=== PATIENT | female | born 1935 | race Caucasian/White ===

== ENCOUNTER 2021-02-02 07:21 | Emergency (ER) | payer MEDICARE ==
[2021-02-02 08:06] LABS: Absolute Neutrophil Ct (ANC) 3.94 (1.4-6.9); BASOPHIL % 0.5 % (0.0-0.4); Basophil (Absolute #) 0.03 (0-0.4); Eosinophil % 2.1 % (0.00-5.0); Eosinophil (Absolute #) 0.13 (0-0.5); Hematocrit 27.4 % (35-47); Hemoglobin 8.5 gm/dl (12.0-16.0); Lymphocyte (Absolute #) 1.53 (1.0-4.6); Lymphocytes % 24.7 % (24.0-44.0); Mean Cell Volume 88.7 fl (78-100); Mean Corpuscular Hemoglobin 27.5 pg (26-32); Mean Platelet Volume 9.9 fl (7.5-11.0); Monocyte (Absolute #) 0.56 (0.0-1.3); Neutrophil % 63.7 % (36.0-66.0); Platelet Count 129 K/mm3 (150-450); Red Blood Count 3.09 M/mm3 (4.1-5.4); White Blood Count 6.2 K/mm3 (4.0-10.5)
--- NOTE | 2021-02-02 08:10 | ERPHSYRPT ---
- History of Present Illness Historian: patient Exam Limitations: other (85 yo NH pt oriented only to place/time) Patient Subjective Stated Complaint: Pt was brought from [facility] with c/o of rectal bleeding per staff Triage Nursing Assessment: Pt brought to the ER via EMS, vitals wnl, pulse irregular, megan lower leg edema, confused, pt can't remember if she had a bowel movement this AM, pt confused as to why she is here, skin pale, cool and dry, wears depends, hyperactive bowel sounds, doesn't appear to be in any distress Physician History: 85 yo wf from [place] w rectal bleeding. Pt on Eliquis for Afib. She is only oriented to place/time. Pt denies CP/dyspnea/N/V/D. NH hx is very limited. She is a DNR. Timing/Duration: other (Unknown) Quality: other (No pain) Abdominal Pain Onset Location: other (No pain) Severity of Pain-Max: none Severity of Pain-Current: none Modifying Factors: Improves With: nothing Associated Symptoms: denies symptoms Previous symptoms: no prior history Allergies/Adverse Reactions: No Known Drug Allergies Allergy (Verified 02/02/21 07:41) Home Medications: Allopurinol 100 mg [Zyloprim 100 mg] 200 mg PO DAILY 02/02/21 [History] Bisacodyl 5 mg [Dulcolax 5 mg] 5 mg PO DAILY 02/02/21 [History] Bumetanide 1 mg [Bumex 1 mg] 1 mg PO DAILY 02/02/21 [History] Buspirone HCl 5 mg [Buspar 5 mg] 2.5 mg PO BID 02/02/21 [History] Carvedilol 6.25 mg [Coreg 6.25 MG] 6.25 mg PO BID 02/02/21 [History] Cyanocobalamin 500 Mcg [Vitamin B-12 500 MCG] 1,000 mcg PO DAILY 02/02/21 [History] Ferrous Sulfate 325 mg [Feosol 325 mg] 325 mg PO BID 02/02/21 [History] Potassium Chloride 10 Meq Tab* [Klor Con 10 MEQ] 40 meq PO BID 02/02/21 [History] Rivaroxaban [Xarelto] 15 mg PO DAILY 02/02/21 [History] metOLazone [Metolazone] 2.5 mg PO 2XW 02/02/21 [History] Travel Risk - International Travel Have you traveled outside of the country in past 3 weeks: No - Coronavirus Screening Are you exhibiting any of the following symptoms?: No Close contact with a COVID-19 positive Pt in past 14-21 Days: No - Vaccine Status Have you recieved a Covid-19 vaccination: Yes Silk Screener: Moderna - Vaccination Dates Date of 2cond Vaccination (if applicable): 08/31/2020 - Review of Systems Constitutional: No Symptoms Eyes: No Symptoms Ears, Nose, & Throat: No Symptoms Respiratory: No Symptoms Cardiac: No Symptoms Abdominal/Gastrointestinal: No Symptoms, Hematochezia Genitourinary Symptoms: No Symptoms Musculoskeletal: No Symptoms Skin: No Symptoms Neurological: No Symptoms Psychological: No Symptoms Endocrine: No Symptoms Hematologic/Lymphatic: No Symptoms Immunological/Allergic: No Symptoms - Past Medical History Pertinent Past Medical History: Yes Neurological History: Dementia Cardiac History: Arrhythmia, Congestive Heart Failure, Hypertension Musculoskeletal History: Osteoarthritis History: Renal Disease Psycho-Social History: Anxiety - Past Surgical History Past Surgical History: Yes (unknown) Gastrointestinal: Appendectomy - Social History Smoking Status: Never smoker Exposure to second hand smoke: No Drug Use: none Patient Lives Alone: No Significant Family History: no pertinent family hx - Female History Hx Now: No - Nursing Vital Signs Nursing Vital Signs: Initial Vital Signs Temperature 98.2 F 02/02/21 07:23 Pulse Rate 70 02/02/21 07:23 Blood Pressure 129/77 02/02/21 07:23 O2 Sat by Pulse Oximetry 94 L 02/02/21 07:23 Pain Scale Pain Intensity 0 - Physical Exam General Appearance: no apparent distress Eye Exam: PERRL/EOMI, eyes nml inspection Ears, Nose, Throat Exam: normal ENT inspection, TMs normal, pharynx normal, moist mucous membranes Neck Exam: normal inspection, non-tender, supple, full range of motion, No meningismus, No mass, No Brudzinski, No Kernig's, No carotid bruit Respiratory Exam: normal breath sounds, lungs clear, airway intact, No respiratory distress Cardiovascular Exam: other (IR-IR w3/6 BARBI) Gastrointestinal/Abdomen Exam: soft, normal bowel sounds, distention, No tenderness Rectal Exam: other (Gross hematochezia) Back Exam: normal inspection, normal range of motion, No CVA tenderness, No vertebral tenderness Extremity Exam: normal inspection, normal range of motion, pelvis stable Neurologic Exam: alert, cooperative, online merchandiser II-XII nml as tested, normal mood/affect, sensation nml, confusion (Disoriented to time), No motor deficits, No sensory deficit, No agitation, No uncooperative Skin Exam: normal color, warm, dry, No rash Lymphatic Exam: No adenopathy SpO2 Interpretation: normal SpO2: 94 O2 Delivery: Room Air - Course Nursing assessment & vital signs reviewed: Yes Ordered Tests: Active Orders 24 hr Category Date Time Status CBC W DIFF Stat Lab 02/02/21 07:52 Completed CMP Stat Lab 02/02/21 07:52 Completed PROTIME WITH INR Stat Lab 02/02/21 07:52 Completed TROPONIN Q3H Lab 02/02/21 07:45 Completed Medication Summary Discontinued Medications Generic Name Dose Route Start Last Admin Trade Name Janelle PRN Reason Stop Dose Admin Phytonadione 10 mg 02/02/21 09:05 02/02/21 09:07 Vitamin K 10 Mg/Ml SQ 02/02/21 09:06 10 mg STAT ONE Administration Phytonadione Confirm 02/02/21 09:06 Vitamin K 10 Mg/Ml Administered 02/02/21 09:07 Dose 10 mg .ROUTE .STK-MED ONE Lab/Rad Data: Laboratory Result Diagrams 02/02/21 07:52 02/02/21 07:52 Laboratory Results 02/02/21 02/02/21 02/02/21 Range/Units 07:52 07:52 07:52 WBC 6.2 (4.0-10.5) K/mm3 RBC 3.09 L (4.1-5.4) M/mm3 Hgb 8.5 L (12.0-16.0) gm/dl Hct 27.4 L (35-47) % MCV 88.7 (78-100) fl MCH 27.5 (26-32) pg MCHC 31.0 L (32-36) g/dl RDW 15.0 H (11.5-14.0) % Plt Count 129 L (150-450) K/mm3 MPV 9.9 (7.5-11.0) fl Gran % 63.7 (36.0-66.0) % Eos # (Auto) 0.13 (0-0.5) Absolute Lymphs (auto) 1.53 (1.0-4.6) Absolute Monos (auto) 0.56 (0.0-1.3) Lymphocytes % 24.7 (24.0-44.0) % Monocytes % 9.0 (0.0-12.0) % Eosinophils % 2.1 (0.00-5.0) % Basophils % 0.5 (0.0-0.4) % Absolute Granulocytes 3.94 (1.4-6.9) Basophils # 0.03 (0-0.4) PT 32.6 H (9.4-12.5) SECONDS INR 2.76 (0.8-3.0) Sodium 141 (137-145) mmol/L Potassium 3.4 L (3.5-5.1) mmol/L Chloride 103 (98-107) mmol/L Carbon Dioxide 25 (22-30) mmol/L Anion Gap 16.8 H (5-15) MEQ/L BUN 49 H (7-17) mg/dL Creatinine 0.94 (0.52-1.04) mg/dL Estimated GFR > 60.0 ML/MIN Glucose 123 H (74-106) mg/dL Calcium 9.1 (8.4-10.2) mg/dL Total Bilirubin 0.50 (0.2-1.3) mg/dL AST 29 (14-36) U/L ALT 19 (0-35) U/L Alkaline Phosphatase 83 (38-126) U/L Troponin I (0.000-0.034) ng/mL Serum Total Protein 6.1 L (6.3-8.2) g/dL Albumin 3.7 (3.5-5.0) g/dL 02/02/21 Range/Units 07:45 WBC (4.0-10.5) K/mm3 RBC (4.1-5.4) M/mm3 Hgb (12.0-16.0) gm/dl Hct (35-47) % MCV (78-100) fl MCH (26-32) pg MCHC (32-36) g/dl RDW (11.5-14.0) % Plt Count (150-450) K/mm3 MPV (7.5-11.0) fl Gran % (36.0-66.0) % Eos # (Auto) (0-0.5) Absolute Lymphs (auto) (1.0-4.6) Absolute Monos (auto) (0.0-1.3) Lymphocytes % (24.0-44.0) % Monocytes % (0.0-12.0) % Eosinophils % (0.00-5.0) % Basophils % (0.0-0.4) % Absolute Granulocytes (1.4-6.9) Basophils # (0-0.4) PT (9.4-12.5) SECONDS INR (0.8-3.0) Sodium (137-145) mmol/L Potassium (3.5-5.1) mmol/L Chloride (98-107) mmol/L Carbon Dioxide (22-30) mmol/L Anion Gap (5-15) MEQ/L BUN (7-17) mg/dL Creatinine (0.52-1.04) mg/dL Estimated GFR ML/MIN Glucose (74-106) mg/dL Calcium (8.4-10.2) mg/dL Total Bilirubin (0.2-1.3) mg/dL AST (14-36) U/L ALT (0-35) U/L Alkaline Phosphatase (38-126) U/L Troponin I 0.021 (0.000-0.034) ng/mL Serum Total Protein (6.3-8.2) g/dL Albumin (3.5-5.0) g/dL - Progress Progress Note: 02/02/21 08:[address] Partida, wants to transfer to [facility] 02/02/21 09:[address] Palacios at [facility] 02/02/21 09:12 10units sq Vit 02/02/21 11:41 Pt stable upon transfer to [facility] Discussed with : Arabella Counseled pt/family regarding: lab results - Departure Departure Disposition: Transfer Clinical Impression: GI bleed Condition: Stable Critical Care Time: No Referrals: LIZET RAMIREZ [Primary Care Provider] - Instructions: Gastrointestinal Bleeding (DC)
[2021-02-02 08:13] LABS: INR 2.76 (0.8-3.0); PROTIME 32.6 SECONDS (9.4-12.5)
[2021-02-02 08:16] LABS: ALBUMIN 3.7 g/dL (3.5-5.0); ALKALINE PHOSPHATASE 83 U/L (38-126); ANION GAP 16.8 MEQ/L (5-15); BLOOD UREA NITROGEN 49 mg/dL (7-17); CHLORIDE 103 mmol/L (98-107); Calcium 9.1 mg/dL (8.4-10.2); Carbon Dioxide 25 mmol/L (22-30); Creatinine 1 0.94 mg/dL (0.52-1.04); EST GLOMERULAR FILTRATION RATE > 60.0 ML/MIN; Glucose 123 mg/dL (74-106); Potassium 3.4 mmol/L (3.5-5.1); SGOT/AST 29 U/L (14-36); SGPT/ALT 19 U/L (0-35); SODIUM 141 mmol/L (137-145); Total Protein 6.1 g/dL (6.3-8.2)
[2021-02-02 08:27] VITALS: PULSE 64
[2021-02-02 09:03] VITALS: BP 116/70
[2021-02-02] MEDS ORDERED: Vitamin K 10 MG/ML SQ ONE (09:05)
[2021-02-02 09:06] VITALS: O2SAT 94
[2021-02-02] MEDS ORDERED: Vitamin K 10 MG/ML ONE (09:06)
== END 2021-02-02 09:36 | disposition short-term general hospital (02) ==
LOC: ED 07:21
DX: Z79.899 Other long term (current) drug therapy (principal); I10 Essential (primary) hypertension; I50.9 Heart failure, unspecified; N28.9 Disorder of kidney and ureter, unspecified
CPT/HCPCS: 36000; 36415; 80053; 84484; 85025; 85610; 96372; 99284; J3430

== ENCOUNTER 2021-04-25 18:46 | Observation (INO) | payer MEDICARE ==
--- NOTE | 2021-04-25 18:53 | ERPHSYRPT ---
- History of Present Illness Time Seen by Provider: 04/25/21 18:53 Source: patient, EMS, custodial records, old records Exam Limitations: clinical condition Physician History: This is an 85-year-old white female patient who is a resident of [facility] and presents with abdominal distention with increased swelling in her lower extremities. Patient has significant Alzheimer's dementia, anxiety, hypertension, congestive heart failure and renal disease. She sees Dr. Gusman assistant hairstylist for her renal disease. She also has a history of atrial fibrillation and gout. Patient denies any pain complaints although she does cry out when we move her or press anywhere on her body including her abdomen. Timing/Duration: today Severity: moderate Modifying Factors: Improves With: nothing Associated Symptoms: denies symptoms Allergies/Adverse Reactions: No Known Drug Allergies Allergy (Verified 02/02/21 07:41) Home Medications: Allopurinol 100 mg [Zyloprim 100 mg] 200 mg PO DAILY 02/02/21 [History] Bisacodyl 5 mg [Dulcolax 5 mg] 5 mg PO DAILY PRN PRN 02/02/21 [History] Bumetanide 1 mg [Bumex 1 mg] 1 mg PO DAILY 02/02/21 [History] Buspirone HCl 5 mg [Buspar 5 mg] 5 mg PO DAILY 02/02/21 [History] Carvedilol 6.25 mg [Coreg 6.25 MG] 6.25 mg PO BID 02/02/21 [History] Cyanocobalamin 500 Mcg [Vitamin B-12 500 MCG] 1,000 mcg PO DAILY 02/02/21 [History] Ferrous Sulfate 325 mg [Feosol 325 mg] 325 mg PO BID 02/02/21 [History] Potassium Chloride 10 Meq Tab* [Klor Con 10 MEQ] 40 meq PO BID 02/02/21 [History] Acetaminophen 325 mg [Tylenol 325 mg] 325 mg PO Q4HPRN PRN 04/25/21 [History] Aspirin 81 mg PO DAILY 04/25/21 [History] Docusate Sodium 100 mg [Colace 100 MG] 100 mg PO DAILY 04/25/21 [History] Famotidine [Pepcid] 40 mg PO DAILY 04/25/21 [History] Nystatin Powder 15 gm [Nystop Powder 15 gm] 1 gm TOP BID 04/26/21 [History] Travel Risk - International Travel Have you traveled outside of the country in past 3 weeks: No - Coronavirus Screening Are you exhibiting any of the following symptoms?: No Close contact with a COVID-19 positive Pt in past 14-21 Days: No - Vaccine Status Have you recieved a Covid-19 vaccination: Yes Relay Shop Supervisor: Moderna - Vaccination Dates Date of 2cond Vaccination (if applicable): 08/31/2020 - Review of Systems Constitutional: No Symptoms Eyes: No Symptoms Ears, Nose, & Throat: No Symptoms Respiratory: No Symptoms Cardiac: No Symptoms Abdominal/Gastrointestinal: Abdominal Pain, No Nausea Genitourinary Symptoms: No Symptoms Musculoskeletal: Other (Bilateral lower extremity swelling) Skin: No Symptoms Neurological: Other (Significant Alzheimer's dementia) Psychological: Anxiety Endocrine: No Symptoms Hematologic/Lymphatic: No Symptoms Immunological/Allergic: No Symptoms All Other Systems: Reviewed and Negative - Past Medical History Pertinent Past Medical History: Yes Neurological History: Dementia Cardiac History: Arrhythmia, Congestive Heart Failure, Hypertension Musculoskeletal History: Osteoarthritis History: Renal Disease Psycho-Social History: Anxiety - Past Surgical History Past Surgical History: Yes (unknown) Gastrointestinal: Appendectomy - Social History Smoking Status: Never smoker Exposure to second hand smoke: No Drug Use: none Patient Lives Alone: No Significant Family History: no pertinent family hx - Nursing Vital Signs Nursing Vital Signs: Initial Vital Signs Temperature 98.6 F 04/25/21 19:02 Pulse Rate 121 H 04/25/21 19:02 Respiratory Rate 28 H 04/25/21 19:02 Blood Pressure 120/108 04/25/21 19:02 O2 Sat by Pulse Oximetry 86 L 04/25/21 19:02 Pain Scale Pain Intensity 0 - Physical Exam General Appearance: no apparent distress, alert, anxiety, obese Eye Exam: PERRL/EOMI, eyes nml inspection Ears, Nose, Throat Exam: normal ENT inspection, moist mucous membranes Neck Exam: normal inspection, non-tender, supple, full range of motion Respiratory Exam: normal breath sounds, airway intact, No chest tenderness, No lungs clear, No respiratory distress Cardiovascular Exam: tachycardia Gastrointestinal/Abdomen Exam: soft, normal bowel sounds, No tenderness Pelvic Exam: not done Rectal Exam: not done Back Exam: normal inspection, normal range of motion, No CVA tenderness Extremity Exam: normal range of motion, pelvis stable, other (Bilateral edema from feet to above the knees) Neurologic Exam: alert, shirt ironer II-XII nml as tested, disoriented, confusion (Secondary to Alzheimer's dementia) Skin Exam: normal color, warm, dry Lymphatic Exam: No adenopathy SpO2 Interpretation: hypoxic O2 Delivery: Room Air - Course Nursing assessment & vital signs reviewed: Yes Ordered Tests: Medication Summary Discontinued Medications Generic Name Dose Route Start Last Admin Trade Name Freq PRN Reason Stop Dose Admin Acetaminophen 650 mg 04/25/21 23:46 Acetaminophen 325 Mg Tablet PO 05/25/21 23:45 Q4H PRN PRN PAIN, FEVER, HEADACHE Acetaminophen 325 mg 04/26/21 08:38 Acetaminophen 325 Mg Tablet PO 05/26/21 08:37 Q4HPRN PRN PAIN Allopurinol 200 mg 04/26/21 10:00 04/26/21 09:12 Allopurinol 100 Mg Tablet PO 05/26/21 09:59 200 mg DAILY RENE Administration Aspirin 81 mg 04/26/21 10:00 04/26/21 09:22 Aspirin 81 Mg Tablet.Ec PO 05/26/21 09:59 81 mg DAILY RENE Administration Bisacodyl 5 mg 04/26/21 08:38 Bisacodyl 5 Mg Tablet.Ec PO 05/26/21 08:37 DAILY PRN PRN CONSTIPATION Bumetanide 1 mg 04/26/21 10:00 04/25/21 22:04 Bumetanide 0.25 Mg/Ml 4ml Vial IV 05/26/21 09:59 1 mg DAILY RENE Administration Bumetanide Confirm 04/25/21 22:02 Bumetanide 0.25 Mg/Ml 4ml Vial Administered 04/25/21 22:03 Dose 1 mg .ROUTE .STK-MED ONE Bumetanide 1 mg 04/26/21 10:00 04/26/21 09:12 Bumetanide 1 Mg Tablet PO 05/26/21 09:59 1 mg DAILY RENE Administration Buspirone HCl 5 mg 04/26/21 10:00 04/26/21 09:12 Buspirone Hcl 5 Mg Tablet PO 05/26/21 09:59 5 mg DAILY RENE Administration Carvedilol 6.25 mg 04/26/21 10:00 04/26/21 09:13 Carvedilol 6.25 Mg Tablet PO 05/26/21 09:59 6.25 mg BID RENE Administration Cyanocobalamin 1,000 mcg 04/26/21 10:00 04/26/21 09:12 Cyanocobalamin 500 Mcg Tablet PO 05/26/21 09:59 1,000 mcg DAILY RENE Administration Docusate Sodium 100 mg 04/26/21 10:00 04/26/21 09:12 Docusate Sodium 100 Mg Capsule PO 05/26/21 09:59 100 mg DAILY RENE Administration Famotidine 40 mg 04/26/21 10:00 04/26/21 09:21 Famotidine 20 Mg Tablet PO 05/26/21 09:59 40 mg DAILY RENE Administration Ferrous Sulfate 325 mg 04/26/21 10:00 04/26/21 09:21 Ferrous Sulfate 325 Mg Tablet PO 05/26/21 09:59 325 mg BID RENE Administration Furosemide 20 mg 04/26/21 08:27 04/26/21 08:38 Furosemide 20 Mg/Vial IV 04/26/21 08:28 20 mg ONCE ONE Administration Ceftriaxone Sodium/Dextrose 1 g in 50 mls @ 100 mls/hr 04/25/21 21:17 04/25/21 22:15 Rocephin 1 Gm-D5w 50 Ml Bag IV 04/25/21 21:46 Infused STAT STA Infusion Ceftriaxone Sodium/Dextrose Confirm 04/25/21 21:21 Rocephin 1 Gm-D5w 50 Ml Bag Administered 04/25/21 21:22 Dose 1 g in 50 mls @ ud IV .STK-MED ONE Sodium Chloride 1,000 mls @ 50 mls/hr 04/25/21 23:46 04/26/21 01:27 Sodium Chloride 0.9% 1000 Ml IV 05/25/21 23:45 50 mls/hr .Q20H RENE Administration Ceftriaxone Sodium/Dextrose 1 g in 50 mls @ 100 mls/hr 04/26/21 22:00 Rocephin 1 Gm-D5w 50 Ml Bag IV 04/29/21 21:59 QPM RENE Sodium Chloride Confirm 04/26/21 01:22 Sodium Chloride 0.9% 1000 Ml Administered 04/26/21 01:23 Dose 1,000 mls @ ud .ROUTE .STK-MED ONE Lorazepam 0.5 mg 04/25/21 21:16 04/25/21 21:33 Lorazepam 2 Mg/1 Ml 2 Mg Vial IV 04/25/21 21:17 0.5 mg STAT ONE Administration Lorazepam Confirm 04/25/21 21:20 Lorazepam 2 Mg/1 Ml 2 Mg Vial Administered 04/25/21 21:21 Dose 2 mg .ROUTE .STK-MED ONE Lorazepam 0.5 mg 04/25/21 21:50 04/26/21 03:28 Lorazepam 2 Mg/1 Ml 2 Mg Vial IV 05/25/21 21:49 0.5 mg Q4H PRN PRN Administration ANXIETY Nystatin 1 gm 04/26/21 10:00 04/26/21 09:23 Nystatin 15 Gm Powder TOP 05/26/21 09:59 1 gm BID RENE Administration Potassium Chloride 40 meq 04/26/21 10:00 04/26/21 09:22 Potassium Chloride 10 Meq Tablet PO 05/26/21 09:59 40 meq BID RENE Administration Lab/Rad Data: Laboratory Result Diagrams 04/25/21 19:38 04/25/21 19:38 Laboratory Results 04/25/21 04/25/21 04/25/21 Range/Units 21:42 21:40 19:38 WBC (4.0-10.5) K/mm3 RBC (4.1-5.4) M/mm3 Hgb (12.0-16.0) gm/dl Hct (35-47) % MCV (78-100) fl MCH (26-32) pg MCHC (32-36) g/dl RDW (11.5-14.0) % Plt Count (150-450) K/mm3 MPV (7.5-11.0) fl Gran % (36.0-66.0) % Eos # (Auto) (0-0.5) Absolute Lymphs (auto) (1.0-4.6) Absolute Monos (auto) (0.0-1.3) Lymphocytes % (24.0-44.0) % Monocytes % (0.0-12.0) % Eosinophils % (0.00-5.0) % Basophils % (0.0-0.4) % Absolute Granulocytes (1.4-6.9) Basophils # (0-0.4) Sodium 141 (137-145) mmol/L Potassium 5.0 (3.5-5.1) mmol/L Chloride 107 (98-107) mmol/L Carbon Dioxide 19 L (22-30) mmol/L Anion Gap 19.8 H (5-15) MEQ/L BUN 34 H (7-17) mg/dL Creatinine 1.13 H (0.52-1.04) mg/dL Estimated GFR 48.5 ML/MIN Glucose 153 H (74-106) mg/dL Lactic Acid 0.7 (0.4-2.0) Calcium 9.6 (8.4-10.2) mg/dL Total Bilirubin 0.80 (0.2-1.3) mg/dL AST 27 (14-36) U/L ALT 16 (0-35) U/L Alkaline Phosphatase 107 (38-126) U/L Serum Total Protein 6.7 (6.3-8.2) g/dL Albumin 3.9 (3.5-5.0) g/dL Amylase 70 (30-110) U/L Lipase 186 (23-300) U/L Urine Color (YELLOW) Urine Appearance (CLEAR) Urine pH (5-6) Ur Specific [place] (1.005-1.025) Urine Protein (Negative) Urine Ketones (NEGATIVE) Urine Blood (0-5) [place] Urine Nitrite (NEGATIVE) Urine Bilirubin (NEGATIVE) Urine Urobilinogen (0-1) mg/dL Ur Leukocyte Esterase (NEGATIVE) Urine WBC (Auto) (0-5) /HPF Urine RBC (Auto) (0-2) /HPF U Hyaline Cast (Auto) (0-2) /LPF U Epithel Cells (Auto) (FEW) /HPF Urine Bacteria (Auto) (NEGATIVE) /HPF Urine Culture Reflexed (NO) Urine Glucose (NEGATIVE) mg/dL SARS-CoV-2 (PCR) NEGATIVE (NEGATIVE) 04/25/21 04/25/21 04/25/21 Range/Units 19:38 19:24 19:19 WBC 7.0 (4.0-10.5) K/mm3 RBC 3.83 L (4.1-5.4) M/mm3 Hgb 10.3 L (12.0-16.0) gm/dl Hct 33.4 L (35-47) % MCV 87.2 (78-100) fl MCH 26.9 (26-32) pg MCHC 30.8 L (32-36) g/dl RDW 17.4 H (11.5-14.0) % Plt Count 157 (150-450) K/mm3 MPV 10.9 (7.5-11.0) fl Gran % 58.4 (36.0-66.0) % Eos # (Auto) 0.09 (0-0.5) Absolute Lymphs (auto) 1.91 (1.0-4.6) Absolute Monos (auto) 0.91 (0.0-1.3) Lymphocytes % 27.2 (24.0-44.0) % Monocytes % 13.0 H (0.0-12.0) % Eosinophils % 1.3 (0.00-5.0) % Basophils % 0.1 (0.0-0.4) % Absolute Granulocytes 4.10 (1.4-6.9) Basophils # 0.01 (0-0.4) Sodium (137-145) mmol/L Potassium (3.5-5.1) mmol/L Chloride (98-107) mmol/L Carbon Dioxide (22-30) mmol/L Anion Gap (5-15) MEQ/L BUN (7-17) mg/dL Creatinine (0.52-1.04) mg/dL Estimated GFR ML/MIN Glucose (74-106) mg/dL Lactic Acid 2.2 H (0.4-2.0) Calcium (8.4-10.2) mg/dL Total Bilirubin (0.2-1.3) mg/dL AST (14-36) U/L ALT (0-35) U/L Alkaline Phosphatase (38-126) U/L Serum Total Protein (6.3-8.2) g/dL Albumin (3.5-5.0) g/dL Amylase (30-110) U/L Lipase (23-300) U/L Urine Color YELLOW (YELLOW) Urine Appearance CLOUDY (CLEAR) Urine pH 5.0 (5-6) Ur Specific [place] 1.010 (1.005-1.025) Urine Protein NEGATIVE (Negative) Urine Ketones NEGATIVE (NEGATIVE) Urine Blood MODERATE (0-5) [place] Urine Nitrite POSITIVE (NEGATIVE) Urine Bilirubin NEGATIVE (NEGATIVE) Urine Urobilinogen NEGATIVE (0-1) mg/dL Ur Leukocyte Esterase LARGE (NEGATIVE) Urine WBC (Auto) >100 (0-5) /HPF Urine RBC (Auto) 16-25 (0-2) /HPF U Hyaline Cast (Auto) 11-25 (0-2) /LPF U Epithel Cells (Auto) RARE (FEW) /HPF Urine Bacteria (Auto) FEW (NEGATIVE) /HPF Urine Culture Reflexed ORDERED SEPARATELY (NO) Urine Glucose NEGATIVE (NEGATIVE) mg/dL SARS-CoV-2 (PCR) (NEGATIVE) - Progress Progress: improved, pain not gone completely Progress Note: 04/25/21 21:28 CAT scan of the abdomen and pelvis shows massive cardiomegaly with small right pleural effusion. There is anasarca present. There is a cirrhotic liver with moderate abdominal and peritoneal ascites present. 04/25/21 21:28 Medical decision making: This patient has intra-abdominal ascites that is causing abdominal distention. The patient also has a urinary tract infection. I spoke with Dr. Post and reviewed the patient's labs and the CAT scan findings. The plan is to place her in observation and provide her with diuretics as well as intravenous antibiotics to treat her urinary tract infection. We will also consult Dr. Adler, our interventional radiologist, to perform a radiographic paracentesis. Discussed with : Katy Counseled pt/family regarding: lab results, diagnosis, rad results - Departure Departure Disposition: Observation Clinical Impression: Dementia, Urinary tract infection, Abdominal ascites Condition: Fair Critical Care Time: No
[2021-04-25 19:52] LABS: Appearance CLOUDY (CLEAR); Bacteria FEW /HPF (NEGATIVE); Bilirubin NEGATIVE (NEGATIVE); Blood MODERATE Ery/ul (0-5); Epithelial Cells RARE /HPF (FEW); Glucose NEGATIVE (NEGATIVE); Ketones NEGATIVE (NEGATIVE); Leukocyte Esterase LARGE (NEGATIVE); Nitrite POSITIVE (NEGATIVE); Protein,Urine Dip NEGATIVE (Negative); Urobilinogen NEGATIVE mg/dL (0-1); WBC >100 /HPF (0-5)
[2021-04-25 20:02] LABS: BASOPHIL % 0.1 % (0.0-0.4); Basophil (Absolute #) 0.01 (0-0.4); Eosinophil % 1.3 % (0.00-5.0); Eosinophil (Absolute #) 0.09 (0-0.5); Hematocrit 33.4 % (35-47); Hemoglobin 10.3 gm/dl (12.0-16.0); Lymphocyte (Absolute #) 1.91 (1.0-4.6); Lymphocytes % 27.2 % (24.0-44.0); Mean Cell Volume 87.2 fl (78-100); Mean Corpuscular Hemoglobin 26.9 pg (26-32); Mean Corpuscular Hgb Concent. 30.8 g/dl (32-36); Mean Platelet Volume 10.9 fl (7.5-11.0); Monocyte (Absolute #) 0.91 (0.0-1.3); Neutrophil % 58.4 % (36.0-66.0); Platelet Count 157 K/mm3 (150-450); Red Blood Count 3.83 M/mm3 (4.1-5.4); Red Cell Distribution Width 17.4 % (11.5-14.0)
[2021-04-25 20:21] LABS: ALBUMIN 3.9 g/dL (3.5-5.0); ANION GAP 19.8 MEQ/L (5-15); BILIRUBIN,TOTAL 0.8 mg/dL (0.2-1.3); Calcium 9.6 mg/dL (8.4-10.2); Creatinine 1 1.13 mg/dL (0.52-1.04); EST GLOMERULAR FILTRATION RATE 48.5 ML/MIN; Total Protein 6.7 g/dL (6.3-8.2)
[2021-04-25] MEDS ORDERED: Ativan 2 MG/1 ML VIAL IV ONE (21:16)
[2021-04-25] MEDS ORDERED: ROCEPHIN 1 Gm-D5w 50 ml Bag** 1 G/50 ML IVPB IV STA (21:17)
[2021-04-25] MEDS ORDERED: Ativan 2 MG/1 ML VIAL ONE (21:20)
[2021-04-25] MEDS ORDERED: ROCEPHIN 1 Gm-D5w 50 ml Bag** 1 G/50 ML IVPB IV ONE (21:21)
[2021-04-25] MEDS ORDERED: Ativan 2 MG/1 ML VIAL IV PRN (21:50)
[2021-04-25] MEDS ORDERED: BUMEX 1 MG ONE (22:02)
[2021-04-25] MEDS ORDERED: TYLENOL 325 MG PO PRN (23:46)
[2021-04-25] MEDS ORDERED: Sodium Chloride 0.9% 1000 ML 1,000 ML IV SCH (23:46)
[2021-04-26] MEDS ORDERED: Sodium Chloride 0.9% 1000 ML 1,000 ML ONE (01:22)
[2021-04-26 04:07] VITALS: O2SAT 93
[2021-04-26 06:02] LABS: INR 1.38 (0.8-3.0); PROTIME 16.3 SECONDS (9.4-12.5)
[2021-04-26] MEDS ORDERED: Lasix 20 MG/2 ML IV ONE (08:27)
[2021-04-26] MEDS ORDERED: DULCOLAX 5 MG PO PRN (08:38)
[2021-04-26] MEDS ORDERED: TYLENOL 325 MG PO PRN (08:38)
--- NOTE | 2021-04-26 08:42 | XRAY ---
Indication: Abdomen distention. Multiple contiguous axial images obtained through the abdomen and pelvis without contrast. Comparison: None Several images slightly degraded by respiration artifact. Lung bases demonstrates massive cardiomegaly, tiny right effusion, and minimal bibasilar subsegmental atelectasis/scarring. Noncontrasted stomach and bowel loops appear nonobstructed. Mild sigmoid diverticulosis. Cirrhotic appearing liver with moderate abdominal and pelvic ascites. No free air. Alves balloon catheter empties the urinary bladder. Previous cholecystectomy and hysterectomy. Remaining pancreas, spleen, adrenal glands, kidneys, and ureters are unremarkable for noncontrast exam. Mild scattered aortoiliac calcifications without AAA. Osseous structures demineralized with minimal/mild degenerative spondylosis and moderate levorotoscoliosis centered at the thoracolumbar junction. There is moderate diffuse anasarca. Impression: 1. Massive cardiomegaly with tiny right effusion and anasarca. Rule out cardiac decompensation/CHF. 2. Cirrhotic liver with abdominal/pelvic ascites. 3. Incidental sigmoid diverticulosis and chronic bony findings.
--- NOTE | 2021-04-26 08:43 | XRAY ---
Indication: Cough. Comparison: None Portable chest inflated and clear with massive cardiomegaly. Bony thorax intact with osteopenia and mild degenerative changes.
[2021-04-26] MEDS ORDERED: NYSTOP POWDER 15 GM TOP SCH (10:00)
[2021-04-26] MEDS ORDERED: BUMEX 1 MG PO SCH (10:00)
[2021-04-26] MEDS ORDERED: ZYLOPRIM 100 MG PO SCH (10:00)
[2021-04-26] MEDS ORDERED: Coreg 6.25 MG PO SCH (10:00)
[2021-04-26] MEDS ORDERED: Colace 100 MG PO SCH (10:00)
[2021-04-26] MEDS ORDERED: Pepcid 20 MG PO SCH (10:00)
[2021-04-26] MEDS ORDERED: NON-FORMULARY ITEM (Famotidine [Pepcid] 40 MG) PO SCH (10:00)
[2021-04-26] MEDS ORDERED: NON-FORMULARY ITEM (Aspirin [Aspirin] 81 MG) PO SCH (10:00)
[2021-04-26] MEDS ORDERED: Klor Con 10 MEQ PO SCH (10:00)
[2021-04-26] MEDS ORDERED: BUMEX 1 MG IV SCH (10:00)
[2021-04-26] MEDS ORDERED: BUSPAR 5 MG PO SCH (10:00)
[2021-04-26] MEDS ORDERED: ECOTRIN 81 MG PO SCH (10:00)
[2021-04-26] MEDS ORDERED: FEOSOL 325 MG PO SCH (10:00)
[2021-04-26] MEDS ORDERED: Vitamin B-12 500 MCG PO SCH (10:00)
[2021-04-26 12:00] VITALS: BP 119/61; PULSE 90
--- NOTE | 2021-04-26 14:13 | XRAY ---
Indication: Ascites. Informed consent obtained. Bedside paracentesis performed. Initial abdominal ultrasound performed for localization. Largest pocket is right mid lateral abdomen. The abdominal wall was prepped and draped in sterile fashion. 1% lidocaine plain was used for local anesthesia. Tiny skin incision made. 5 [place] paracentesis needle/catheter was then percutaneously inserted. Once fluid was aspirating, the outer catheter was then advanced with the inner needle removed. Catheter was connected to a Vacutainer. Approximately 1.2 L of dark colored transudative fluid aspirated and was disposed of properly. 30 cc sent to laboratory for analysis. Repeat sonogram demonstrates marked improvement with small residual. Catheter removed. Hemostasis achieved using digital pressure over the puncture site. Band-Aid applied over the puncture site. Impression: Technically successful ultrasound guided abdominal paracentesis for both diagnostic and therapeutic purpose. No immediate complications or blood loss.
[2021-04-26] MEDS ORDERED: ROCEPHIN 1 Gm-D5w 50 ml Bag** 1 G/50 ML IVPB IV SCH (22:00)
--- NOTE | 2021-04-30 08:36 | PCM.SSS ---
History of Present Illness - Chief Complaint Chief Complaint: Intra-abdominal ascites, UTI Date: 04/26/21 History of Present Illness: is a 85 year old female. Presented to ER with intra-abdominal ascites and lower extremity edema. Pt. was admitted for U/S guided peritoneal drainage of the ascites, and initiation of treatment for a uti. Pt. tolerated procedure well and was subsequently discharged to long-term on oral antibiotics. - Review of Systems Constitutional: No Fever, No Chills Eyes: No Symptoms Ears, Nose, & Throat: No Symptoms Respiratory: No Cough, No Short Of Breath Cardiac: Edema, No Chest Pain, No Syncope Abdominal/Gastrointestinal: Constipation, Other (ascites), No Abdominal Pain, No Nausea, No Vomiting, No Diarrhea Genitourinary Symptoms: No Dysuria Musculoskeletal: No Back Pain, No Neck Pain Skin: No Rash Neurological: No Dizziness, No Focal Weakness, No Sensory Changes Psychological: No Symptoms Endocrine: No Symptoms Hematologic/Lymphatic: No Symptoms Immunological/Allergic: No Symptoms Medications & Allergies Home Medications: Home Medication List Allopurinol 100 mg [Zyloprim 100 mg] 200 mg PO DAILY 02/02/21 [History Confirmed 04/25/21] Bisacodyl 5 mg [Dulcolax 5 mg] 5 mg PO DAILY PRN PRN 02/02/21 [History Confirmed 04/26/21] Bumetanide 1 mg [Bumex 1 mg] 1 mg PO DAILY 02/02/21 [History Confirmed 04/25/21] Buspirone HCl 5 mg [Buspar 5 mg] 5 mg PO DAILY 02/02/21 [History Confirmed 04/26/21] Carvedilol 6.25 mg [Coreg 6.25 MG] 6.25 mg PO BID 02/02/21 [History Confirmed 04/25/21] Cyanocobalamin 500 Mcg [Vitamin B-12 500 MCG] 1,000 mcg PO DAILY 02/02/21 [History Confirmed 04/25/21] Ferrous Sulfate 325 mg [Feosol 325 mg] 325 mg PO BID 02/02/21 [History Confirmed 04/25/21] Potassium Chloride 10 Meq Tab* [Klor Con 10 MEQ] 40 meq PO BID 02/02/21 [History Confirmed 04/25/21] Acetaminophen 325 mg [Tylenol 325 mg] 325 mg PO Q4HPRN PRN 04/25/21 [Histo ry Confirmed 04/26/21] Aspirin 81 mg PO DAILY 04/25/21 [History Confirmed 04/25/21] Docusate Sodium 100 mg [Colace 100 MG] 100 mg PO DAILY 04/25/21 [History Confirmed 04/25/21] Famotidine [Pepcid] 40 mg PO DAILY 04/25/21 [History Confirmed 04/25/21] Nystatin Powder 15 gm [Nystop Powder 15 gm] 1 gm TOP BID 04/26/21 [History Confirmed 04/26/21] clindamycin HCL [Cleocin HCl] 300 mg PO BID 10 Days #20 tab 04/26/21 [Rx] Allergies/Adverse Reactions: Allergies Allergy/AdvReac Type Severity Reaction Status Date / Time No Known Drug Allergies Allergy Verified 02/02/21 07:41 - Past Medical History Past Medical History: Yes Neurological History: Dementia ENT History: No Pertinent History Cardiac History: Arrhythmia, Congestive Heart Failure, Hypertension Respiratory History: No Pertinent History Endocrine Medical History: Hyperthyroidism Musculoskelatal History: Osteoarthritis GI Medical History: GERD History: Renal Disease Pyscho-Social History: Anxiety Reproductive Disorders: No Pertinent History Comment: Anemia, Gout - Female History Are you now?: No - Past Surgical History Past Surgical History: Yes (unknown) GI Surgical History: Appendectomy Other Surgical History: Patient poor historian. - Social History Smoking Status: Unknown if ever smoked Exposure to second hand smoke: No Alcohol: None Drug Use: none Significant Family History: no pertinent family hx - Physical Exam General Appearance: no apparent distress Neurologic Exam: alert, cooperative Eye Exam: PERRL/EOMI, eyes nml inspection Ears, Nose, Throat Exam: normal ENT inspection, pharynx normal, moist mucous membranes Neck Exam: normal inspection, non-tender, supple, full range of motion, No meningismus Respiratory Exam: normal breath sounds, lungs clear, No chest tenderness Cardiovascular Exam: normal heart sounds, irregular Gastrointestinal/Abdomen Exam: soft, distention, pulsatile mass, No guarding, No rebound Rectal Exam: deferred Back Exam: normal inspection Extremity Exam: pedal edema Results - Labs Lab/Micro Results: Microbiology 04/26/21 13:38 Sterile Body Fluid Culture - Preliminary Abdominal Fluid Body Fluid Culture Result 1 - Preliminary 04/25/21 19:38 Urine Culture - Final Catherized Klebsiella Pneumoniae Assessment/Plan (1) Abdominal ascites Status: Acute Code(s): R18.8 - OTHER ASCITES (2) Dementia Status: Acute Code(s): F03.90 - UNSPECIFIED DEMENTIA WITHOUT BEHAVIORAL DISTURBANCE (3) Urinary tract infection Status: Acute Code(s): N39.0 - URINARY TRACT INFECTION, SITE NOT SPECIFIED Hospital Summary - Hospital Course Hospital Course: Pt. admitted iv antibiotics initiated for treatment of UTI, the patient underwent peritoneal drainage via U/S guidance and was stable to discharge back to long-term afterward - Vitals & Intake/Output Vital Signs: Vital Signs Temperature 98.0 F 04/26/21 11:57 Pulse Rate 90 04/26/21 11:57 Respiratory Rate 16 04/26/21 11:57 Blood Pressure 119/61 04/26/21 11:57 O2 Sat by Pulse Oximetry 93 L 04/26/21 11:57 Intake & Output: Intake & Output 04/27/21 04/28/21 04/29/21 04/30/21 11:59 11:59 11:59 11:59 Intake Total 240 Output Total 1250 Balance -1010 - Lab Result Diagrams: 04/25/21 19:38 04/25/21 19:38 Micro Results-Entire Visit: Microbiology 04/26/21 13:38 Sterile Body Fluid Culture - Preliminary Abdominal Fluid Body Fluid Culture Result 1 - Preliminary 04/25/21 19:38 Urine Culture - Final Catherized Klebsiella Pneumoniae - Procedures and Test Procedures and Tests throughout Hospitalization: Therapy Orders & Screens 04/26/21 01:03 OT Screen per Nursing Assess ONCE Comment: Protocol Order Physician Instructions: Greater than 3 points order OT Admission Screening Reason For Exam: Triggered on Admission Diagnosis: Intra-abdominal ascites, UTI Open Wound/Cellutlitis/Pressure Ulcers: No Acute Fx/ORIF/Change in wt bearing status: No Severe MUSCULOSKELETAL pain: No ADL Dysfunction: Yes: weakness Acute CVA w/Hemiparesis/Hemiplegia: No Decreased Functional Mobility/Strength: Yes Sprain/Strain: No Acute Post-op Mobility Dysfunction: No Total Points: 4 PT Screen per Nursing Assess ONCE Comment: Protocol Order Physician Instructions: Greater than 3 points order PT Admission Screenin Reason For Exam: Triggered on Admission Diagnosis: Intra-abdominal ascites, UTI Open Wound/Cellutlitis/Pressure Ulcers: No Acute Fx/ORIF/Change in wt bearing status: No Severe MUSCULOSKELETAL pain: No ADL Dysfunction: Yes: weakness Acute CVA w/Hemiparesis/Hemiplegia: No Decreased Functional Mobility/Strength: Yes Sprain/Strain: No Acute Post-op Mobility Dysfunction: No Total Points: 4 ST Screen per Nursing Assess ONCE Comment: Protocol Order Physician Instructions: Greater than [address] Admission Screening Reason For Exam: Triggered on Admission Diagnosis: Intra-abdominal ascites, UTI CVA/Dyshpagia/Aphasia: No Cognitive Deficits: Yes Dehydration/Nutrition Deficit: No Reflux: Yes: GERD Oral-Motor Difficulties: No Pneumonia: No Halfway Resident: Yes Total Points: 11 - Discharge Discharge Date: 04/25/21 Disposition: HI TO [facility] Condition: Fair Prescriptions: New clindamycin HCL [Cleocin HCl] 300 mg PO BID 10 Days #20 tab Continue Potassium Chloride 10 Meq Tab* [Klor Con 10 MEQ] 40 meq PO BID Ferrous Sulfate 325 mg [Feosol 325 mg] 325 mg PO BID Cyanocobalamin 500 Mcg [Vitamin B-12 500 MCG] 1,000 mcg PO DAILY Bisacodyl 5 mg [Dulcolax 5 mg] 5 mg PO DAILY PRN PRN PRN Reason: Constipation Carvedilol 6.25 mg [Coreg 6.25 MG] 6.25 mg PO BID Buspirone HCl 5 mg [Buspar 5 mg] 5 mg PO DAILY Bumetanide 1 mg [Bumex 1 mg] 1 mg PO DAILY Allopurinol 100 mg [Zyloprim 100 mg] 200 mg PO DAILY Famotidine [Pepcid] 40 mg PO DAILY Acetaminophen 325 mg [Tylenol 325 mg] 325 mg PO Q4HPRN PRN PRN Reason: Pain Docusate Sodium 100 mg [Colace 100 MG] 100 mg PO DAILY Aspirin 81 mg PO DAILY Nystatin Powder 15 gm [Nystop Powder 15 gm] 1 gm TOP BID Forms: Ambulance Transport Record, Transfer Record Halfway
== END 2021-04-26 15:00 ==
LOC: ED 18:46 → MED SURG 23:32
PROVIDERS: ADMIT Family Medicine; ATTEND Family Medicine
DX: R18.8 Other ascites (principal); N39.0 Urinary tract infection, site not specified; F03.90 Unspecified dementia, unspecified severity, without behavioral disturbance, psychotic disturbance, mood disturbance, and anxiety; I11.9 Hypertensive heart disease without heart failure; M79.89 Other specified soft tissue disorders; Z79.899 Other long term (current) drug therapy; Z20.822 Contact with and (suspected) exposure to COVID-19; K74.60 Unspecified cirrhosis of liver
CPT/HCPCS: 36000; 36415; 49083; 71045; 74176; 80053; 81001; 82150; 83605; 83690; 85025; 85610; 87070; 87075; 87077; 87086; 87186; 88112; 96365; 96374; 99284; G0378; U0003; J0696; J1940; J2060; A9270-GY

== ENCOUNTER 2021-05-09 17:58 | Observation (INO) | payer MEDICARE ==
[2021-05-09 19:22] LABS: Absolute Neutrophil Ct (ANC) 3.46 (1.4-6.9); BASOPHIL % 0.2 % (0.0-0.4); Basophil (Absolute #) 0.01 (0-0.4); Eosinophil % 1.2 % (0.00-5.0); Eosinophil (Absolute #) 0.07 (0-0.5); Hematocrit 30.6 % (35-47); Hemoglobin 9.6 gm/dl (12.0-16.0); Lymphocyte (Absolute #) 1.39 (1.0-4.6); Lymphocytes % 24.8 % (24.0-44.0); Mean Cell Volume 86.7 fl (78-100); Mean Corpuscular Hemoglobin 27.2 pg (26-32); Mean Corpuscular Hgb Concent. 31.4 g/dl (32-36); Mean Platelet Volume 10.7 fl (7.5-11.0); Monocyte (Absolute #) 0.68 (0.0-1.3); Monocytes % 12.1 % (0.0-12.0); Neutrophil % 61.7 % (36.0-66.0); Platelet Count 145 K/mm3 (150-450); Red Blood Count 3.53 M/mm3 (4.1-5.4); Red Cell Distribution Width 17.6 % (11.5-14.0); White Blood Count 5.6 K/mm3 (4.0-10.5)
[2021-05-09 19:45] LABS: ALBUMIN 3.6 g/dL (3.5-5.0); ANION GAP 14.3 MEQ/L (5-15); BILIRUBIN,TOTAL 0.8 mg/dL (0.2-1.3); Calcium 9.1 mg/dL (8.4-10.2); Creatinine 1 0.97 mg/dL (0.52-1.04); EST GLOMERULAR FILTRATION RATE 57.9 ML/MIN; Potassium 4.5 mmol/L (3.5-5.1); Total Protein 6.3 g/dL (6.3-8.2)
--- NOTE | 2021-05-09 20:48 | ERPHSYRPT ---
- History of Present Illness Time Seen by Provider: 05/09/21 18:20 Source: patient Exam Limitations: no limitations Patient Subjective Stated Complaint: Rayshawn RN states "She has pitting edema noted bilat lower extremities and minor pitting edema noted upper lower extremit ies. Pt also has ascites on abdomen that was going to go get tapped on friday but we called Dr. Huang and he said to have pt go to ED." "we have the pt [id number] mL fluid restriction and low salt diet." Triage Nursing Assessment: Pt presented alert and confused, pt normal. PT has +4 pitting edema noted bilat distal lower extremity and +_1 pitting proximal lower extremity. PT has ascites noted accross abdomen. PT resting comfortably on bed. Physician History: Patient is a 85-year-old female [facility] for evaluation of bilateral lower extremity swelling. Patient has a history of CHF. Patient also has a history of recurrent ascites which requires frequent draining. Patient has a history of dementia and is a poor historian. Patient denies pain. Patient denies shortness of breath. No nausea vomiting or diap horesis. No fever. Patient voices no concerns. Physical exam does reveal bilateral lower extremity swelling. No specific worsening improving factors. Patient is on a fluid restriction. Timing/Duration: today Severity: moderate Modifying Factors: Improves With: nothing Associated Symptoms: denies symptoms Allergies/Adverse Reactions: No Known Drug Allergies Allergy (Verified 02/02/21 07:41) Home Medications: Allopurinol 100 mg [Zyloprim 100 mg] 200 mg PO DAILY 02/02/21 [History] Bisacodyl 5 mg [Dulcolax 5 mg] 5 mg PO DAILY PRN PRN 02/02/21 [History] Bumetanide 1 mg [Bumex 1 mg] 1 mg PO DAILY 02/02/21 [History] Buspirone HCl 5 mg [Buspar 5 mg] 5 mg PO DAILY 02/02/21 [History] Carvedilol 6.25 mg [Coreg 6.25 MG] 6.25 mg PO BID 02/02/21 [History] Cyanocobalamin 500 Mcg [Vitamin B-12 500 MCG] 1,000 mcg PO DAILY 02/02/21 [History] Ferrous Sulfate 325 mg [Feosol 325 mg] 325 mg PO BID 02/02/21 [History] Potassium Chloride 10 Meq Tab* [Klor Con 10 MEQ] 40 meq PO BID 02/02/21 [History] Acetaminophen 325 mg [Tylenol 325 mg] 325 mg PO Q4HPRN PRN 04/25/21 [History] Aspirin 81 mg PO DAILY 04/25/21 [History] Docusate Sodium 100 mg [Colace 100 MG] 100 mg PO DAILY 04/25/21 [History] Famotidine [Pepcid] 40 mg PO DAILY 04/25/21 [History] Nystatin Powder 15 gm [Nystop Powder 15 gm] 1 gm TOP BID 04/26/21 [History] Cephalexin Mh 500 mg [Keflex 500 mg] 500 mg PO BID 05/09/21 [History] Levofloxacin [Levaquin] 500 mg PO DAILY 05/09/21 [History] Hx Tetanus, Diphtheria Vaccination/Date Given: Yes Hx Influenza Vaccination/Date Given: Yes Hx Pneumococcal Vaccination/Date Given: Yes Immunizations Up to Date: Yes Travel Risk - International Travel Have you traveled outside of the country in past 3 weeks: No - Coronavirus Screening Are you exhibiting any of the following symptoms?: No Close contact with a COVID-19 positive Pt in past 14-21 Days: No - Vaccine Status Have you recieved a Covid-19 vaccination: Yes Gas Examiner: Moderna - Vaccination Dates Date of 2cond Vaccination (if applicable): 08/31/2020 - Review of Systems Constitutional: No Symptoms, No Fever, No Chills Eyes: No Symptoms Ears, Nose, & Throat: No Symptoms Respiratory: No Symptoms, No Cough, No Dyspnea Cardiac: No Symptoms, No Chest Pain, No Edema, No Syncope Abdominal/Gastrointestinal: No Symptoms, No Abdominal Pain, No Nausea, No Vomiting, No Diarrhea Genitourinary Symptoms: No Symptoms, No Dysuria Musculoskeletal: No Symptoms, No Back Pain, No Neck Pain Skin: No Symptoms, No Rash Neurological: No Symptoms, No Dizziness, No Focal Weakness, No Sensory Changes Psychological: No Symptoms Endocrine: No Symptoms Hematologic/Lymphatic: No Symptoms Immunological/Allergic: No Symptoms All Other Systems: Reviewed and Negative - Past Medical History Pertinent Past Medical History: Yes Neurological History: Dementia ENT History: No Pertinent History Cardiac History: Arrhythmia, Congestive Heart Failure, Hypertension Respiratory History: No Pertinent History Endocrine Medical History: Hyperthyroidism Musculoskeletal History: Osteoarthritis GI Medical History: GERD History: Renal Disease Psycho-Social History: Anxiety Female Reproductive Disorders: No Pertinent History Other Medical History: Anemia, Gout - Past Surgical History Past Surgical History: Yes (unknown) Gastrointestinal: Appendectomy Other Surgical History: Patient poor historian. - Social History Smoking Status: Never smoker Exposure to second hand smoke: No Drug Use: none Patient Lives Alone: No Significant Family History: no pertinent family hx - Nursing Vital Signs Nursing Vital Signs: Initial Vital Signs Temperature 97.8 F 05/09/21 17:59 Pulse Rate 73 05/09/21 17:59 Respiratory Rate 22 05/09/21 17:59 Blood Pressure 123/81 05/09/21 17:59 O2 Sat by Pulse Oximetry 95 05/09/21 17:59 Pain Scale Pain Intensity 0 - Physical Exam General Appearance: no apparent distress, alert Eye Exam: PERRL/EOMI, eyes nml inspection Ears, Nose, Throat Exam: normal ENT inspection, TMs normal, pharynx normal, moist mucous membranes Neck Exam: normal inspection, non-tender, supple, full range of motion Respiratory Exam: normal breath sounds, lungs clear, No respiratory distress Cardiovascular Exam: regular rate/rhythm, normal heart sounds, normal peripheral pulses Gastrointestinal/Abdomen Exam: soft, normal bowel sounds, No tenderness, No mass Back Exam: normal inspection, normal range of motion, No CVA tenderness, No vertebral tenderness Extremity Exam: normal inspection, normal range of motion, pelvis stable, swelling, other (3+ bilateral lower extremity pitting edema.) Neurologic Exam: alert, oriented x 3, cooperative, normal mood/affect, sensation nml, No motor deficits Skin Exam: normal color, warm, dry, No rash Lymphatic Exam: No adenopathy SpO2 Interpretation: normal SpO2: 95 O2 Delivery: Room Air - Course Nursing assessment & vital signs reviewed: Yes EKG Interpreted by Me: RATE (113), A-fib, Right [place] Deviation, NORMAL INTERVALS - Radiology Exams Chest X-ray Interpretation: Interpreted by me (Lungs are clear bilaterally. Right pleural effusion, cardiomegaly, bony thorax intact. Osteopenia degenerative arthritis.) Ordered Tests: Active Orders 24 hr Category Date Time Status Stamping Die Maker STAT Care 05/09/21 18:54 Active EKG-ER Only STAT Care 05/09/21 18:53 Active IV Insertion STAT Care 05/09/21 18:53 Active Pulse Oximetry (ED) STAT Care 05/09/21 18:53 Active ABDOMINAL PARACENTESIS [US] Routine Exams 05/10/21 Ordered CHEST 1 VIEW (PORTABLE) Stat Exams 05/09/21 22:04 Taken CBC W DIFF Stat Lab 05/09/21 19:10 Completed CMP Stat Lab 05/09/21 19:10 Completed NT PRO BNP Stat Lab 05/09/21 19:10 Completed PROTIME WITH INR Stat Lab 05/09/21 22:59 Completed PTT Stat Lab 05/09/21 22:59 Completed TROPONIN Q3H Lab 05/09/21 19:10 Completed TROPONIN Q3H Lab 05/09/21 23:06 Completed TROPONIN Q3H Lab 05/10/21 01:00 Ordered TROPONIN Q3H Lab 05/10/21 04:00 Ordered TROPONIN Q3H Lab 05/10/21 07:00 Ordered UA W/RFX UR CULTURE Stat Lab 05/09/21 23:00 Completed Transfer Order Routine Transfer 05/10/21 Ordered Medication Summary Generic Name Dose Route Start Last Admin Trade Name Freq PRN Reason Stop Dose Admin Aspirin 324 mg 05/10/21 00:26 Aspirin 81 Mg Tab.Chew PO 05/10/21 00:27 STAT ONE Nitroglycerin 1 gm 05/10/21 00:26 Nitroglycerin 1 Gm Packet TOP 05/10/21 00:27 STAT ONE Discontinued Medications Generic Name Dose Route Start Last Admin Trade Name Freq PRN Reason Stop Dose Admin Furosemide 40 mg 05/09/21 21:30 05/09/21 21:46 Furosemide 40 Mg/4 Ml Vial IV 05/09/21 21:31 40 mg STAT ONE Administration Furosemide Confirm 05/09/21 21:44 Furosemide 40 Mg/4 Ml Vial Administered 05/09/21 21:45 Dose 40 mg .ROUTE .STK-MED ONE Lab/Rad Data: Laboratory Result Diagrams 05/09/21 19:10 05/09/21 19:10 Laboratory Results 05/09/21 05/09/21 05/09/21 Range/Units 23:07 23:06 23:00 WBC (4.0-10.5) K/mm3 RBC (4.1-5.4) M/mm3 Hgb (12.0-16.0) gm/dl Hct (35-47) % MCV (78-100) fl MCH (26-32) pg MCHC (32-36) g/dl RDW (11.5-14.0) % Plt Count (150-450) K/mm3 MPV (7.5-11.0) fl Gran % (36.0-66.0) % Eos # (Auto) (0-0.5) Absolute Lymphs (auto) (1.0-4.6) Absolute Monos (auto) (0.0-1.3) Lymphocytes % (24.0-44.0) % Monocytes % (0.0-12.0) % Eosinophils % (0.00-5.0) % Basophils % (0.0-0.4) % Absolute Granulocytes (1.4-6.9) Basophils # (0-0.4) PT (9.4-12.5) SECONDS INR (0.8-3.0) APTT (25.1-36.5) SECONDS Sodium (137-145) mmol/L Potassium (3.5-5.1) mmol/L Chloride (98-107) mmol/L Carbon Dioxide (22-30) mmol/L Anion Gap (5-15) MEQ/L BUN (7-17) mg/dL Creatinine (0.52-1.04) mg/dL Estimated GFR ML/MIN Glucose (74-106) mg/dL Calcium (8.4-10.2) mg/dL Total Bilirubin (0.2-1.3) mg/dL AST (14-36) U/L ALT (0-35) U/L Alkaline Phosphatase (38-126) U/L Troponin I 0.024 (0.000-0.034) ng/mL NT-Pro-B Natriuret Pep (0-1800) pg/mL Serum Total Protein (6.3-8.2) g/dL Albumin (3.5-5.0) g/dL Urine Color YELLOW (YELLOW) Urine Appearance SLIGHTLY CLOUDY (CLEAR) Urine pH 5.0 (5-6) Ur Specific [place] 1.009 (1.005-1.025) Urine Protein NEGATIVE (Negative) Urine Ketones NEGATIVE (NEGATIVE) Urine Blood NEGATIVE (0-5) [place] Urine Nitrite NEGATIVE (NEGATIVE) Urine Bilirubin NEGATIVE (NEGATIVE) Urine Urobilinogen NEGATIVE (0-1) mg/dL Ur Leukocyte Esterase MODERATE (NEGATIVE) Urine WBC (Auto) 3-5 (0-5) /HPF Urine RBC (Auto) 0-2 (0-2) /HPF U Hyaline Cast (Auto) 11-25 (0-2) /LPF U Epithel Cells (Auto) RARE (FEW) /HPF Urine Bacteria (Auto) RARE (NEGATIVE) /HPF Urine Culture Reflexed NO (NO) Urine Glucose NEGATIVE (NEGATIVE) mg/dL SARS-CoV-2 (PCR) NEGATIVE (NEGATIVE) 05/09/21 05/09/21 05/09/21 Range/Units 22:59 19:10 19:10 WBC (4.0-10.5) K/mm3 RBC (4.1-5.4) M/mm3 Hgb (12.0-16.0) gm/dl Hct (35-47) % MCV (78-100) fl MCH (26-32) pg MCHC (32-36) g/dl RDW (11.5-14.0) % Plt Count (150-450) K/mm3 MPV (7.5-11.0) fl Gran % (36.0-66.0) % Eos # (Auto) (0-0.5) Absolute Lymphs (auto) (1.0-4.6) Absolute Monos (auto) (0.0-1.3) Lymphocytes % (24.0-44.0) % Monocytes % (0.0-12.0) % Eosinophils % (0.00-5.0) % Basophils % (0.0-0.4) % Absolute Granulocytes (1.4-6.9) Basophils # (0-0.4) PT 15.5 H (9.4-12.5) SECONDS INR 1.31 (0.8-3.0) APTT 30.0 (25.1-36.5) SECONDS Sodium 139 (137-145) mmol/L Potassium 4.5 (3.5-5.1) mmol/L Chloride 103 (98-107) mmol/L Carbon Dioxide 26 (22-30) mmol/L Anion Gap 14.3 (5-15) MEQ/L BUN 35 H (7-17) mg/dL Creatinine 0.97 (0.52-1.04) mg/dL Estimated GFR 57.9 ML/MIN Glucose 115 H (74-106) mg/dL Calcium 9.1 (8.4-10.2) mg/dL Total Bilirubin 0.80 (0.2-1.3) mg/dL AST 25 (14-36) U/L ALT 13 (0-35) U/L Alkaline Phosphatase 91 (38-126) U/L Troponin I 0.020 (0.000-0.034) ng/mL NT-Pro-B Natriuret Pep 54337 H (0-1800) pg/mL Serum Total Protein 6.3 (6.3-8.2) g/dL Albumin 3.6 (3.5-5.0) g/dL Urine Color (YELLOW) Urine Appearance (CLEAR) Urine pH (5-6) Ur Specific [place] (1.005-1.025) Urine Protein (Negative) Urine Ketones (NEGATIVE) Urine Blood (0-5) [place] Urine Nitrite (NEGATIVE) Urine Bilirubin (NEGATIVE) Urine Urobilinogen (0-1) mg/dL Ur Leukocyte Esterase (NEGATIVE) Urine WBC (Auto) (0-5) /HPF Urine RBC (Auto) (0-2) /HPF U Hyaline Cast (Auto) (0-2) /LPF U Epithel Cells (Auto) (FEW) /HPF Urine Bacteria (Auto) (NEGATIVE) /HPF Urine Culture Reflexed (NO) Urine Glucose (NEGATIVE) mg/dL SARS-CoV-2 (PCR) (NEGATIVE) 05/09/21 Range/Units 19:10 WBC 5.6 (4.0-10.5) K/mm3 RBC 3.53 L (4.1-5.4) M/mm3 Hgb 9.6 L (12.0-16.0) gm/dl Hct 30.6 L (35-47) % MCV 86.7 (78-100) fl MCH 27.2 (26-32) pg MCHC 31.4 L (32-36) g/dl RDW 17.6 H (11.5-14.0) % Plt Count 145 L (150-450) K/mm3 MPV 10.7 (7.5-11.0) fl Gran % 61.7 (36.0-66.0) % Eos # (Auto) 0.07 (0-0.5) Absolute Lymphs (auto) 1.39 (1.0-4.6) Absolute Monos (auto) 0.68 (0.0-1.3) Lymphocytes % 24.8 (24.0-44.0) % Monocytes % 12.1 H (0.0-12.0) % Eosinophils % 1.2 (0.00-5.0) % Basophils % 0.2 (0.0-0.4) % Absolute Granulocytes 3.46 (1.4-6.9) Basophils # 0.01 (0-0.4) PT (9.4-12.5) SECONDS INR (0.8-3.0) APTT (25.1-36.5) SECONDS Sodium (137-145) mmol/L Potassium (3.5-5.1) mmol/L Chloride (98-107) mmol/L Carbon Dioxide (22-30) mmol/L Anion Gap (5-15) MEQ/L BUN (7-17) mg/dL Creatinine (0.52-1.04) mg/dL Estimated GFR ML/MIN Glucose (74-106) mg/dL Calcium (8.4-10.2) mg/dL Total Bilirubin (0.2-1.3) mg/dL AST (14-36) U/L ALT (0-35) U/L Alkaline Phosphatase (38-126) U/L Troponin I (0.000-0.034) ng/mL NT-Pro-B Natriuret Pep (0-1800) pg/mL Serum Total Protein (6.3-8.2) g/dL Albumin (3.5-5.0) g/dL Urine Color (YELLOW) Urine Appearance (CLEAR) Urine pH (5-6) Ur Specific [place] (1.005-1.025) Urine Protein (Negative) Urine Ketones (NEGATIVE) Urine Blood (0-5) [place] Urine Nitrite (NEGATIVE) Urine Bilirubin (NEGATIVE) Urine Urobilinogen (0-1) mg/dL Ur Leukocyte Esterase (NEGATIVE) Urine WBC (Auto) (0-5) /HPF Urine RBC (Auto) (0-2) /HPF U Hyaline Cast (Auto) (0-2) /LPF U Epithel Cells (Auto) (FEW) /HPF Urine Bacteria (Auto) (NEGATIVE) /HPF Urine Culture Reflexed (NO) Urine Glucose (NEGATIVE) mg/dL SARS-CoV-2 (PCR) (NEGATIVE) - Progress Progress: improved Progress Note: Covid test negative. Case discussed with Dr. Post who accepts admission to observation. We made arrangements for patient to obtain her routine paracentesis to treat her ascites. BNP 16,000. Lasix administered. Plan of care discussed with patient. She agrees to admission [facility] for evaluation and treatment. Portions of this note were created with voice recognition technology. There may be grammatical, spelling, punctuation or sound alike errors 05/10/21 00:21 Discussed with .: Katy Will see patient in: hospital (observation) Counseled pt/family regarding: lab results, diagnosis, rad results - Departure Departure Disposition: Home Clinical Impression: Edema Condition: Stable Critical Care Time: No Referrals: LIZET RAMIREZ [Primary Care Provider] -
[2021-05-09] MEDS ORDERED: Lasix 40 MG/4 ML IV ONE (21:30)
[2021-05-09] MEDS ORDERED: Lasix 40 MG/4 ML ONE (21:44)
[2021-05-09 23:10] LABS: INR 1.31 (0.8-3.0); PROTIME 15.5 SECONDS (9.4-12.5)
[2021-05-09 23:11] LABS: Appearance SLIGHTLY CLOUDY (CLEAR); Bacteria RARE /HPF (NEGATIVE); Bilirubin NEGATIVE (NEGATIVE); Blood NEGATIVE Ery/ul (0-5); Epithelial Cells RARE /HPF (FEW); Glucose NEGATIVE (NEGATIVE); Ketones NEGATIVE (NEGATIVE); Leukocyte Esterase MODERATE (NEGATIVE); Nitrite NEGATIVE (NEGATIVE); Protein,Urine Dip NEGATIVE (Negative); RBC 0-2 /HPF (0-2); Specific Gravity 1.009 (1.005-1.025); Urobilinogen NEGATIVE mg/dL (0-1)
[2021-05-10] MEDS ORDERED: NITRO-BID 2% UD PACKETS TOP ONE (00:26)
[2021-05-10] MEDS ORDERED: BABY ASPIRIN 81 MG CHEW PO ONE (00:26)
[2021-05-10] MEDS ORDERED: NITRO-BID 2% UD PACKETS ONE (00:27)
--- NOTE | 2021-05-10 09:01 | XRAY ---
Indication: Pulmonary congestion. Comparison: April 25, 2021. Portable chest unchanged again demonstrating clear lungs with massive cardiomegaly. Bony thorax intact again with osteopenia and degenerative changes. No new/acute findings.
[2021-05-10] MEDS ORDERED: DULCOLAX 5 MG PO PRN ×2 (09:25)
[2021-05-10] MEDS ORDERED: TYLENOL 325 MG PO PRN (09:25)
[2021-05-10] MEDS ORDERED: NON-FORMULARY ITEM (Famotidine [Pepcid] 40 MG Tablet) PO SCH (10:00)
[2021-05-10] MEDS ORDERED: Lasix 40 MG/4 ML IV SCH (10:00)
[2021-05-10] MEDS ORDERED: NON-FORMULARY ITEM (Aspirin [Aspirin] 81 MG Tablet) PO SCH (10:00)
[2021-05-10] MEDS ORDERED: Klor Con 10 MEQ PO SCH (10:00)
[2021-05-10] MEDS: Lasix 40 MG PO SCH ×2 (10:09→17:30)
[2021-05-10] MEDS: BUSPAR 5 MG PO SCH (10:09)
[2021-05-10] MEDS: Aldactone 25 MG PO SCH ×2 (10:09→17:30)
[2021-05-10] MEDS: BUMEX 1 MG PO SCH (10:10)
[2021-05-10 11:24] LABS: ANION GAP 16.1 MEQ/L (5-15); Calcium 9.3 mg/dL (8.4-10.2); Creatinine 1 1.1 mg/dL (0.52-1.04); EST GLOMERULAR FILTRATION RATE 50.1 ML/MIN; Potassium 3.5 mmol/L (3.5-5.1)
[2021-05-10 11:27] LABS: Hematocrit 31.6 % (35-47); Hemoglobin 9.9 gm/dl (12.0-16.0); Mean Cell Volume 86.6 fl (78-100); Mean Corpuscular Hemoglobin 27.1 pg (26-32); Mean Corpuscular Hgb Concent. 31.3 g/dl (32-36); Mean Platelet Volume 10.3 fl (7.5-11.0); Platelet Count 150 K/mm3 (150-450); Red Blood Count 3.65 M/mm3 (4.1-5.4); Red Cell Distribution Width 17.7 % (11.5-14.0); White Blood Count 6.2 K/mm3 (4.0-10.5)
[2021-05-10] MEDS: Vitamin B-12 500 MCG PO SCH (12:25)
[2021-05-10] MEDS: ECOTRIN 81 MG PO SCH (12:25)
[2021-05-10] MEDS: ZYLOPRIM 100 MG PO SCH (12:26)
[2021-05-10] MEDS: Pepcid 20 MG PO SCH (12:26)
[2021-05-10] MEDS: Coreg 6.25 MG PO SCH ×2 (12:26→22:26)
[2021-05-10] MEDS: Zaroxolyn 2.5 MG PO SCH (12:26)
[2021-05-10] MEDS: FEOSOL 325 MG PO SCH ×2 (12:26→22:26)
[2021-05-10] MEDS: Levofloxacin 250MG Tablet PO SCH (12:26)
[2021-05-10] MEDS: KEFLEX 250 MG PO SCH ×2 (12:27→22:26)
--- NOTE | 2021-05-10 12:28 | XRAY ---
Indication: Ascites. Informed consent obtained. Bedside paracentesis performed. Initial abdominal ultrasound performed for localization. Largest pocket is right mid lateral abdomen. The abdominal wall was prepped and draped in sterile fashion. 1% lidocaine plain was used for local anesthesia. Tiny skin incision made. 5 [place] algranoeh paracentesis needle/catheter was then percutaneously inserted. Once fluid was aspirating, the outer catheter was then advanced with the inner needle removed. Catheter was connected to a Vacutainer. Approximately 1.1 L of pink colored transudative fluid aspirated and was disposed of properly. Repeat sonogram demonstrates marked improvement with small residual. Catheter removed. Hemostasis achieved using digital pressure over the puncture site. Band-Aid applied over the puncture site. Impression: Technically successful ultrasound guided abdominal paracentesis for therapeutic purpose. No immediate complications or blood loss.
[2021-05-10] MEDS: KENALOG 0.1% CREAM 15 GM TOP SCH ×2 (12:32→22:27)
[2021-05-10] MEDS: Colace 100 MG PO SCH (12:38)
[2021-05-10] MEDS: K-LYTE 25 MEQ PO SCH ×2 (13:43→22:22)
[2021-05-11] MEDS: FEOSOL 325 MG PO SCH ×2 (03:26→09:31)
[2021-05-11] MEDS: Coreg 6.25 MG PO SCH ×2 (03:27→09:31)
[2021-05-11] MEDS: KEFLEX 250 MG PO SCH ×2 (03:29→09:31)
[2021-05-11 07:36] VITALS: BP 127/73; PULSE 98; O2SAT 93
[2021-05-11] MEDS: BUMEX 1 MG PO SCH (09:30)
[2021-05-11] MEDS: Zaroxolyn 2.5 MG PO SCH (09:30)
[2021-05-11] MEDS: Aldactone 25 MG PO SCH (09:30)
[2021-05-11] MEDS: Lasix 40 MG PO SCH (09:31)
[2021-05-11] MEDS: BUSPAR 5 MG PO SCH (09:31)
[2021-05-11] MEDS: Levofloxacin 250MG Tablet PO SCH (09:31)
[2021-05-11] MEDS: Colace 100 MG PO SCH (09:31)
[2021-05-11] MEDS: ZYLOPRIM 100 MG PO SCH (09:31)
[2021-05-11] MEDS: Pepcid 20 MG PO SCH (09:31)
[2021-05-11] MEDS: ECOTRIN 81 MG PO SCH (09:31)
[2021-05-11] MEDS: Vitamin B-12 500 MCG PO SCH (09:31)
[2021-05-11] MEDS: KENALOG 0.1% CREAM 15 GM TOP SCH (09:32)
[2021-05-11] MEDS: K-LYTE 25 MEQ PO SCH (09:32)
--- NOTE | 2021-05-30 20:08 | PCM.SSS ---
History of Present Illness - Chief Complaint Chief Complaint: abdominal ascites, chf Date: 05/11/21 History of Present Illness: is a 86 year old female. pt. brought to er for increasing sob and abdominal girth, pt. was given dose of lasix in ER and admitted for paracentesis via u/s guidance to decrease the intra-abdominal pressure on the lungs. - Review of Systems Constitutional: No Fever, No Chills Eyes: No Symptoms Ears, Nose, & Throat: No Symptoms Respiratory: Orthopnea, Short Of Breath, No Cough Cardiac: No Chest Pain, No Edema, No Syncope Abdominal/Gastrointestinal: No Abdominal Pain, No Nausea, No Vomiting, No Diarrhea Genitourinary Symptoms: No Dysuria Musculoskeletal: No Back Pain, No Neck Pain Skin: No Rash Neurological: No Dizziness, No Focal Weakness, No Sensory Changes Psychological: No Symptoms Endocrine: No Symptoms Hematologic/Lymphatic: No Symptoms Immunological/Allergic: No Symptoms Medications & Allergies Home Medications: Home Medication List Allopurinol 100 mg [Zyloprim 100 mg] 200 mg PO DAILY 02/02/21 [History Confirmed 05/09/21] Bisacodyl 5 mg [Dulcolax 5 mg] 5 mg PO DAILY PRN PRN 02/02/21 [History Confirmed 05/09/21] Bumetanide 1 mg [Bumex 1 mg] 1 mg PO DAILY 02/02/21 [History Confirmed 05/09/21] Buspirone HCl 5 mg [Buspar 5 mg] 5 mg PO DAILY 02/02/21 [History Confirmed 05/09/21] Carvedilol 6.25 mg [Coreg 6.25 MG] 6.25 mg PO BID 02/02/21 [History Confirmed 05/09/21] Cyanocobalamin 500 Mcg [Vitamin B-12 500 MCG] 1,000 mcg PO DAILY 02/02/21 [History Confirmed 05/09/21] Ferrous Sulfate 325 mg [Feosol 325 mg] 325 mg PO BID 02/02/21 [History Confirmed 05/09/21] Acetaminophen 325 mg [Tylenol 325 mg] 325 mg PO Q4HPRN PRN 04/25/21 [History Confirmed 05/09/21] Aspirin 81 mg PO DAILY 04/25/21 [History Confirmed 05/09/21] Docusate Sodium 100 mg [Colace 100 MG] 100 mg PO DAILY 04/25/21 [History Confirmed 05/09/21] Famotidine [Pepcid] 40 mg PO DAILY 04/25/21 [History Confirmed 05/09/21] Cephalexin Mh 500 mg [Keflex 500 mg] 250 mg PO BID 05/09/21 [History Confirmed 05/10/21] Levofloxacin [Levaquin] 250 mg PO DAILY 05/09/21 [History Confirmed 05/10/21] Bisacodyl [Dulcolax] 5 mg PO DAILY PRN PRN 05/10/21 [History Confirmed 05/10/21] Triamcinolone 0.1% Cream [Kenalog 0.1% Cream 15 gm] 0.025 dose TOP BID 05/10/21 [History Confirmed 05/10/21] metOLazone [Metolazone] 2.5 mg PO DAILY 05/10/21 [History Confirmed 05/10/21] Furosemide 40 mg [Lasix 40 MG] 40 mg PO BID DIURETIC #30 05/11/21 [Rx] Potassium Bicarbonate 25 MEQ [K-Lyte 25 Meq] 50 meq PO BID 30 Days tab 05/11/21 [Rx] Spironolactone 25 mg [Aldactone 25 MG] 50 mg PO BID DIURETIC #30 tablet 05/11/21 [Rx] Allergies/Adverse Reactions: Allergies Allergy/AdvReac Type Severity Reaction Status Date / Time No Known Drug Allergies Allergy Verified 02/02/21 07:41 - Past Medical History Past Medical History: Yes Neurological History: Dementia ENT History: No Pertinent History Cardiac History: Arrhythmia, Congestive Heart Failure, Hypertension Respiratory History: No Pertinent History Endocrine Medical History: Hyperthyroidism Musculoskelatal History: Osteoarthritis GI Medical History: GERD History: Renal Disease Pyscho-Social History: Anxiety Reproductive Disorders: No Pertinent History Comment: Anemia, Gout - Past Surgical History Past Surgical History: Yes (unknown) Neuro Surgical History: No Pertinent History GI Surgical History: Appendectomy Other Surgical History: Patient poor historian. - Social History Smoking Status: Never smoker Exposure to second hand smoke: No Alcohol: None Drug Use: none Significant Family History: no pertinent family hx - Physical Exam General Appearance: no apparent distress, alert Neurologic Exam: alert, oriented x 3, cooperative, normal mood/affect, nml cerebellar function, nml station & gait, sensation nml, No motor deficits Eye Exam: PERRL/EOMI, eyes nml inspection Ears, Nose, Throat Exam: normal ENT inspection, TMs normal, pharynx normal, moist mucous membranes Neck Exam: normal inspection, non-tender, supple, full range of motion Respiratory Exam: normal breath sounds, lungs clear, No respiratory distress Cardiovascular Exam: regular rate/rhythm, normal heart sounds, normal peripheral pulses Gastrointestinal/Abdomen Exam: soft, normal bowel sounds, distention, No tenderness, No mass Back Exam: normal inspection, normal range of motion, No CVA tenderness, No vertebral tenderness Extremity Exam: normal inspection, normal range of motion, pelvis stable, pedal edema Skin Exam: normal color, warm, dry, No rash Lymphatic Exam: No adenopathy Assessment/Plan (1) CHF (congestive heart failure) Status: Acute Code(s): I50.9 - HEART FAILURE, UNSPECIFIED (2) Abdominal ascites Status: Acute Code(s): R18.8 - OTHER ASCITES (3) Edema Status: Acute Code(s): R60.9 - EDEMA, UNSPECIFIED Hospital Summary - Hospital Course Hospital Course: Pt. was given diereses in ER and breathing had improved by morning, but still extensive amount of ascites noted on exam, pt. had paracentesis the following am via ultrasound guidance. Several liters removed and it was felt the patient would no longer benefit from admission and referred back to [facility] for continued treatment. - Vitals & Intake/Output Vital Signs: Vital Signs Temperature 98.0 F 05/11/21 07:35 Pulse Rate 98 H 05/11/21 07:35 Respiratory Rate 16 05/11/21 07:35 Blood Pressure 127/73 05/11/21 07:35 O2 Sat by Pulse Oximetry 93 L 05/11/21 07:35 - Lab Result Diagrams: 05/10/21 10:55 05/10/21 10:55 - Procedures and Test Procedures and Tests throughout Hospitalization: Therapy Orders & Screens 05/10/21 00:48 Oxygen NASAL CANNULA 2 lpm Comment: Diagnosis: CHF 05/10/21 01:48 OT Screen per Nursing Assess ONCE Comment: Protocol Order Physician Instructions: Greater than 3 points order OT Admission Screening Reason For Exam: Triggered on Admission Diagnosis: CHF Open Wound/Cellutlitis/Pressure Ulcers: Yes Acute Fx/ORIF/Change in wt bearing status: No Severe MUSCULOSKELETAL pain: No ADL Dysfunction: Yes Acute CVA w/Hemiparesis/Hemiplegia: No Decreased Functional Mobility/Strength: Yes Sprain/Strain: No Acute Post-op Mobility Dysfunction: No Total Points: 9 PT Screen per Nursing Assess ONCE Comment: Protocol Order Physician Instructions: Greater than 3 points order PT Admission Screenin Reason For Exam: Triggered on Admission Diagnosis: CHF Open Wound/Cellutlitis/Pressure Ulcers: Yes Acute Fx/ORIF/Change in wt bearing status: No Severe MUSCULOSKELETAL pain: No ADL Dysfunction: Yes Acute CVA w/Hemiparesis/Hemiplegia: No Decreased Functional Mobility/Strength: Yes Sprain/Strain: No Acute Post-op Mobility Dysfunction: No Total Points: 9 ST Screen per Nursing Assess ONCE Comment: Protocol Order Physician Instructions: Greater than [address] Admission Screening Reason For Exam: Triggered on Admission Diagnosis: CHF CVA/Dyshpagia/Aphasia: No Cognitive Deficits: Yes Dehydration/Nutrition Deficit: No Reflux: No Oral-Motor Difficulties: No Pneumonia: No [facility] Resident: Yes Total Points: 8 - Discharge Discharge Date: 05/11/21 Disposition: [place] TO [facility] Condition: Stable Prescriptions: New Spironolactone 25 mg [Aldactone 25 MG] 50 mg PO BID DIURETIC #30 tablet Potassium Bicarbonate 25 MEQ [K-Lyte 25 Meq] 50 meq PO BID 30 Days tab Furosemide 40 mg [Lasix 40 MG] 40 mg PO BID DIURETIC #30 Continue Ferrous Sulfate 325 mg [Feosol 325 mg] 325 mg PO BID Cyanocobalamin 500 Mcg [Vitamin B-12 500 MCG] 1,000 mcg PO DAILY Bisacodyl 5 mg [Dulcolax 5 mg] 5 mg PO DAILY PRN PRN PRN Reason: Constipation Carvedilol 6.25 mg [Coreg 6.25 MG] 6.25 mg PO BID Buspirone HCl 5 mg [Buspar 5 mg] 5 mg PO DAILY Bumetanide 1 mg [Bumex 1 mg] 1 mg PO DAILY Allopurinol 100 mg [Zyloprim 100 mg] 200 mg PO DAILY Famotidine [Pepcid] 40 mg PO DAILY Acetaminophen 325 mg [Tylenol 325 mg] 325 mg PO Q4HPRN PRN PRN Reason: Pain Docusate Sodium 100 mg [Colace 100 MG] 100 mg PO DAILY Aspirin 81 mg PO DAILY Levofloxacin [Levaquin] 250 mg PO DAILY Cephalexin Mh 500 mg [Keflex 500 mg] 250 mg PO BID Bisacodyl [Dulcolax] 5 mg PO DAILY PRN PRN PRN Reason: Constipation metOLazone [Metolazone] 2.5 mg PO DAILY Triamcinolone 0.1% Cream [Kenalog 0.1% Cream 15 gm] 0.025 dose TOP BID Discontinued Potassium Chloride 10 Meq Tab* [Klor Con 10 MEQ] 40 meq PO BID Outpatient Orders: BMP Time Frame: 05/12/21, Facility: [facility], Location: LABORATORY Instructions: Heart Failure, Adult (DC) Additional Instructions: LIZET RAMIREZ SNF ORDERS: -RESUME PREVIOUS SNF ORDERS -LOW SODIUM DIET -SEE ATTACHED MEDICATION LIST FOR MEDICAITON ORDERS -BNP IN AM -THIGH HIGH COMPERSSION STOCKINGS 20-30MM HG / ON FOR 36 HOURS THEN OFF FOR 12 HOURS Forms: Outpatient Follow-up Labs/Proc
== END 2021-05-11 10:48 ==
LOC: ED 17:58 → MED SURG 05-10 00:28
PROVIDERS: ADMIT Family Medicine; ATTEND Family Medicine
DX: I11.0 Hypertensive heart disease with heart failure (principal); I50.9 Heart failure, unspecified; R18.8 Other ascites; E05.90 Thyrotoxicosis, unspecified without thyrotoxic crisis or storm; Z79.899 Other long term (current) drug therapy; Z20.822 Contact with and (suspected) exposure to COVID-19
CPT/HCPCS: 36000; 36415; 49083; 71045; 80048; 80053; 81001; 83880; 84484; 85025; 85027; 85610; 85730; 93005; 93041; 94760; 96374; 99285; G0378; U0003; J1940; A9270-GY